=== PATIENT | female | born 1985 | race Caucasian/White ===

== ENCOUNTER 2019-08-29 12:07 | Emergency (ER) | payer OTHER, SELFPAY ==
--- NOTE | ~2019-08-29 | XR_ITS ---
EXAMINATION: XR hand LT min 3V DATE: 08/29/2019 12:57 INDICATION: Left hand pain. Injury. TECHNIQUE: 3 views of left hand were obtained. COMPARISON: None. FINDINGS: Bone alignment is normal. No fracture. There is mild osteoarthritis of first metacarpophala ngeal joint. IMPRESSION: 1. No fracture. Reviewed, dictated and finalized at location A. IMPRESSION: 1. No fracture.
[2019-08-29 12:50] VITALS: BP 123/78; PULSE 90; RESP 20; TEMP 36.7; O2SAT 100
--- NOTE | 2019-08-29 13:13 | ED.GENADULT ---
HPI - General Adult General Chief complaint: Extremity Injury, Upper Stated complaint: left finger injury Time Seen by Provider: 08/29/19 13:14 Source: patient and RN notes reviewed Mode of arrival: ambulatory Limitations: no limitations History of Present Illness HPI narrative: 33-year-old female presents with complaints of LT 4th (ring) finger, (ring in place and Marcella refuses to have removed and unable to remove herself due to swelling, moves freely at this time), pain and swelling and 5th (baby) finger pain for 1 day. No treatment. 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 Intermittent numbness and burning sensation. Denies tingling. No weakness of finger(s). Denies fever or chills. Denies immobility. Exacerbation is movement and palpation of finger. Relieving factor is rest. Dominant hand is RIGHT HAND. The 4th (ring) and 5th (baby) fingers with minor break in skin and bloody drainage. Marcella denies being , LMP 3 days ago. Tetanus not up to date, will update today. The patient reports she have not been diagnosed with COVID-19. The patient reports she is not waiting for the results of a COVID-19 lab test. The patient reports she do not have fever, chills, weakness, fatigue, or myalgia. The patient reports she do not have a new or worsening cough or shortness of breath. Denies chest pain. The patient reports she do not have any rhinorrhea, congestion, sore throat, nausea, vomiting, abdominal pain, and diarrhea. Tolerating po intake well. Denies recent traveling. Denies concerns for COVID-19 or exposures been home since [id number] order except for essential household needs and return home. At this time, patient is not suspected of having COVID-19. Some parts of this dictation were generated by voice recognition software and may contain typographical and/or grammatical inaccuracies. Related Data Home Medications Medication Instructions Recorded Confirmed Vitamin 08/29/19 Allergies Allergy/AdvReac Type Severity Reaction Status Date / Time pertussis vaccine,fluid Allergy Severe Siezure Verified 12/22/18 15:56 Penicillins Allergy Unknown Verified 02/29/16 11:19 Pertussis Vaccines Allergy Unknown Verified 02/29/16 11:18 Review of Systems Review of Systems: Narrative: CONSTITUTIONAL: Denies fever, chills, sweats. EYES: Denies visual changes, redness, discharge. ENT: Denies rhinorrhea, congestion, sore throat, otalgia. CARDIOVASCULAR: Denies chest pain, palpitations, edema. RESPIRATORY: Denies dyspnea, wheezing, cough. GASTROINTESTINAL: Denies abdominal pain, nausea, vomiting, diarrhea. GENITOURINARY: Denies dysuria, hematuria, abnormal discharge. SKIN: Denies rash or itching. Complains of LT 4th (ring) finger swelling, pain, and minor abrasion, and 5th (baby) finger pain and minor abrasion. MUSCULOSKELETAL: Denies acute back pain or myalgia. Complains of LT 4th (ring) finger pain and swelling. NEUROLOGIC: Denies numbness or focal weakness. PSYCHIATRIC: Denies anxiety or depression. All systems reviewed & are unremarkable except as noted in HPI and below PMFSH Past Medical History Medical History (Updated 08/30/19 @ 00:01 by Kristofer Rivera) Anxiety Depression Toe fracture, left BABY TOE Tourettes syndrome Surgical History Surgical History (Updated 08/29/19 @ 13:41 by SADE Hernandez) H/O unilateral oophorectomy Right Family History Family History Other Family history of allergic disorder Family history of blood dyscrasia Family history of kidney disease Social History Social History (Updated 08/29/19 @ 13:42 by SADE Hernandez) Smoking packs per day: 0.5 Smoking cigarettes per day: 10.0 Years smoked: 10 Smoking pack-years: 5.00 Smoking status: Current some day smoker Tobacco type: cigarettes Second hand tobacco smoke exposu
[2019-08-29] MEDS: TETANUS/DIPHTHERIA TOXOIDS ADSORB 0.5 ML VIAL (*BKC) IM (13:49)
== END 2019-08-29 14:10 | disposition home or self-care (01) ==
PROVIDERS: Emergency Provider Nurse Practitioner Family
DX: S63.615A Unspecified sprain of left ring finger, initial encounter (principal); S60.417A Abrasion of left little finger, initial encounter; F95.2 Tourette's disorder; Z23 Encounter for immunization; F17.210 Nicotine dependence, cigarettes, uncomplicated; W23.0XXA Caught, crushed, jammed, or pinched between moving objects, initial encounter
CPT/HCPCS: 29130; 73130; 90471; 90714; 99213; G0463

== ENCOUNTER 2022-07-31 14:35 | Emergency (ER) | payer OTHER, SELFPAY ==
[2022-07-31 14:40] VITALS: BP 133/79; PULSE 91; RESP 16; TEMP 36.2; O2SAT 99
--- NOTE | 2022-07-31 14:57 | ED.GENADULT ---
HPI - General Adult General Chief complaint: Skin/Abscess/Foreign Body Stated complaint: Rash on chest Time Seen by Provider: 07/31/22 14:42 History of Present Illness HPI narrative: Marcella is a previously healthy 36F that presented to the ED with a rash on her chest. It started 2 weeks ago when she was seen in an urgent care and diagnosed with contact dermatitis. She was treated with steroids and Vistaril. It originally improved but the rash and itching returned 2 days later. She is not sure of any new exposures, soaps or detergents. She is however, under a lot of stress as she is recently and is starting a new job. Related Data Home Medications Medication Instructions Recorded Confirmed Vitamin 08/29/19 Allergies Allergy/AdvReac Type Severity Reaction Status Date / Time pertussis vaccine,fluid Allergy Severe Siezure Verified 07/31/22 14:51 Penicillins Allergy Unknown Hives Verified 07/31/22 14:51 Pertussis Vaccines Allergy Unknown Fatigued Verified 07/31/22 14:51 Review of Systems Review of Systems: All systems reviewed & are unremarkable except as noted in HPI and below PMFSH Past Medical History Medical History Anxiety Depression Toe fracture, left BABY TOE Tourettes syndrome Surgical History Surgical History H/O unilateral oophorectomy Right Family History Family History Other Family history of allergic disorder Family history of blood dyscrasia Family history of kidney disease Social History Social History Smoking packs per day: 0.5 Smoking cigarettes per day: 10.0 Years smoked: 10 Smoking pack-years: 5.00 Smoking status: Current some day smoker Tobacco type: cigarettes Second hand tobacco smoke exposure: Yes Alcohol intake: current Substance use: current Substance use type: marijuana Living arrangements: with family Occupation/Education: unemployed Gender identity (if verbalized by the patient): Female Exam Const: General: healthy appearing Nutritional Appearance: well nourished Orientation/consciousness: patient oriented x3 Limitations: no limitations HENMT: Head: normal to inspection Ears: external ears normal Face/Nose/Sinus: Normal external nose present Eyes: Conjunctivae: conjunctivae normal Pupils: Equal, round and reactive pupils present EOM: EOMs intact bilaterally Neck: Neck: normal visual inspection Chest: Chest palpation & inspection: normal inspection of the chest Resp: Effort & Inspection: normal respiratory effort Auscultation: clear to auscultation bilaterally Cardio: Rate: regular rate Rhythm: regular rhythm GI: Inspection: non-distended Skin: Other: maculopapular erythematous rash diffusely over the chest with significant excoriation Neuro: General: patient oriented x3 and moves all extremities Extrem: General: normal to inspection Psych: Mental Status: mental status grossly normal Course Course Emergency Course: given a dose of prednisone Discharge Plan Discharge Clinical Impression: Contact dermatitis Patient Disposition: Home, Self-Care Condition: Stable Instructions: Contact Dermatitis (ED) Additional Instructions: Please make a follow up appointment with your regular doctor or a order booker. Prescriptions: New methylprednisolone [Medrol (Shyam)] 4 mg tablets,dose pack See Rx Instructions .ROUTE .COMPLEX Qty: 21 0RF Rx Instructions: orally per package directions betamethasone dipropionate 0.05 % cream 1 applic topical BID PRN (Reason: rash) Qty: 45 0RF No Action Vitamin Follow-up/Referrals: Becki,MD Bill [Primary Care Provider] -
[2022-07-31] MEDS: predniSONE 20 MG TABLET 60 MG PO (15:32)
== END 2022-07-31 15:35 | disposition home or self-care (01) ==
PROVIDERS: Emergency Provider Family Medicine; PCP Family Medicine
DX: L25.9 Unspecified contact dermatitis, unspecified cause (principal); F17.210 Nicotine dependence, cigarettes, uncomplicated
CPT/HCPCS: 99283; J7512

== ENCOUNTER 2023-10-10 10:20 | Outpatient (CLI) | payer OTHER, SELFPAY ==
--- NOTE | ~2023-10-10 | MMUS_ITS ---
EXAMINATION: MM diagnostic julia BI w roya, US breast BI complete HISTORY: Palpable breast lump TECHNIQUE: Additional 3-D tomosynthesis images of the breasts were performed and synthetic 2-D images were generated. CAD analysis was submitted and interpreted. High resolution bilateral complete breas t ultrasound was performed. COMPARISON: Comparison to multiple prior studies sequentially, with oldest reviewed study dated 10/23. BREAST PARENCHYMAL COMPOSITION: Dense: The breasts are heterogeneously dense, which may obscure small masses FINDINGS: MAMMOGRAPHIC FINDINGS: Stable small mass lower inner quadrant of the right breast compared with prior studies, presumably be nign. No new masses, calcifications or architectural distortion ULTRASOUND: Complete bilateral US of all 4 quadrants of the breasts and retroareolar region was reviewed. There a re small bilateral cysts including a 3 mm cyst in the right breast at 4:00, 6 cm from the nipple and in the left breast at 1:00, 4 cm from the nipple measuring 4 mm. No suspicious sonographic abnormalit ies to suggest malignancy. IMPRESSION: 1. No evidence for malignancy in either breast. 2. Routine yearly screening mammogram and regular clinical breast examination are recommended. BI-RADS Category 2: Benign finding(s). Reviewed, dictated and finalized at location B. IMPRESSION: 1. No evidence for malignancy in either breast. 2. Routine yearly screening mammogram and regular clinical breast examination a re recommended. BI-RADS Category 2: Benign finding(s).
== END 2023-10-10 10:21 | disposition home or self-care (01) ==
PROVIDERS: PCP Family Medicine; Visit Provider Nurse Practitioner Obstetrics & Gynecology
DX: N63.14 Unspecified lump in the right breast, lower inner quadrant (principal); Z80.3 Family history of malignant neoplasm of breast
CPT/HCPCS: 76641; 77062; 77066; G0279

== ENCOUNTER 2024-08-02 16:27 | Emergency (ER) | payer OTHER, SELFPAY ==
--- NOTE | ~2024-08-02 | XR_ITS ---
XR knee RT 3V Ordering provider: Adi Kearney MD History: . right knee pain . Comparison: February 11, 2016 FINDINGS: BONES: No acute fracture or dislocation. JOINT SPACES: Narrowing of the medial compartment. SOFT TISSUES: Normal. IMPRESSION: No acute osseous abnormality right knee. Slight narrowing of the medial compartment which may indicate early osteoarthritic changes. Reviewed, dictated and finalized at location A. IMPRESSION: No acute osseous abnormality right knee. Slight narrowing of the medial compartment which may indicate early osteoarthri tic changes.
--- OUTSIDE RECORDS SUMMARY | 2024-08-02 16:33 | XMS_ITS | Clinical Summary ---
Author Organization [facility] Address [address] [place] [address] Care Team Providers Care Field Training Manager Name Role Phone No, Physician Primary Care Provider [phone] Allergies Active Allergy Reactions Criticality Noted Date Comments Penicillins Unknown 07/29/2020 Pertussis Vaccines Unknown 02/01/2024 Hydrocodone-Acetaminoph en Other (See comments) Low 07/29/2020 Pt reports it makes her sick Medications cetirizine (ZyrTEC) 10 mg tablet Take 1 tablet by mouth as needed 9 Active clotrimazole 1 % cream Apply topically 2 (two) times a day 3 Active Active Problems Problem Noted Date Diagnosed Date At risk for hereditary cancer-predisposing syndr ome 09/12/2023 Overview (09/12/2023): Daughter with POT1 [id number], [id number] Family history of colon cancer 09/12/2023 Breast mass 07/29/2020 Abnormal findings on diagnostic imaging of breas t 07/29/2020 Surgical History Surgery Date Site/Laterality Comments RHEUMATOID ARTHRITIS Medical History Medical History Date Comments Arthritis Depression Family History Medical History Relation Name Comments GI problems Child 1 POT1 Child 1 POT1 [id number] 2del, [id number] Thrombocytopenia Child 1 facial tics Child 2 ADD / ADHD Child 3 Tourette syndrome Child 3 Alcohol abuse Father d. 47 Cirrhosis Maternal Grandfather Colon cancer Maternal Grandmother s/p col ectomy, recurrence d. 74 Breast cancer Maternal Great-Grandmother Colon cancer Maternal Great-Grandmother GI problems Maternal Half-Brother moles Mother COPD Paternal Grandmother d. 70s GI problems Sister 1 No Known Problems Sister 2 Relation Name Status Comments Child 1 Alive Child 2 Alive Child 3 Alive Father Maternal Grandfather Maternal Grandmother Maternal Great-Grandmother m aternal - maternal Maternal Half-Brother Alive Mother Alive Paternal Grandfather Paternal Grandmother Sister 1 Alive Sister 2 Alive Social History Tobacco Use Types Packs/Day Years Used Date Smoking Tobacco: Former Vaping Tobacco Cessation:Counseling Given: Not Answered AUDIT-C Answer Date Recorded Q1: How often do you have a drink containing alc ohol? Monthly or less 07/29/2020 Average Number of Drinks Not on file 021 Frequency of Binge Drinking Not on file 07/2020 Comments Unknown Sex and Gender Information Value Date Recorded Sex Assigned at Not on file Legal Sex Female 8:16 PM KELP GATHERER Gender Identity Not on file Sexual Orientation Not on file Obstetrics History Last Filed Vital Signs Vital Sign Reading Time Taken Comments Blood Pressure 142/84 02/01/2024 9:56 AM KELP GATHERER Pulse 77 02/01/2024 9:56 AM KELP GATHERER Temperature 36.5 C (97.7 F) 02/01/2024 9:56 AM KELP GATHERER Respiratory Rate 18 02/01/2024 9:56 AM KELP GATHERER Oxygen Saturation 100% 02/01/2024 9:56 AM KELP GATHERER Inhaled Oxygen Concentration - - Weight 67.2 kg (148 lb 3.2 oz) 02/01/2024 9:56 A M KELP GATHERER Height 177 cm (5' 9.69 ) 02/01/2024 9:56 AM KELP GATHERER Body Mass Index 21.46 02/01/2024 9:56 AM KELP GATHERER Plan of Treatment Health Maintenance Due Date Last Done Comments Cervical Cancer Screening 1985 Depression Screening 1985 Hepatitis C Screening 1985 Varicella Vaccines (1 of 2 - 13+ 2-dose series) 1998 Regular Well Visit/Exam 18-64 10/08/2003 DTaP/Tdap/Td Vaccine (7 - Td or Tdap) 07/30/2023 07/29/2013, 12/19/2000, 10/11/1990, Additional history exists Influenza Vaccine (#1) 11/26/2023201 4, 02/27/2013, 03/08/2012 Hepatitis B Screening Completed 12/09/1996 , 09/02/1996, 05/24/1996 HPV Vaccines Aged Out No longer eligi ble based on patient's age to complete this topic Pneumococcal vaccine <65 Aged Out No longer eligible based on patient's age to complete this topic Insurance [facility] Care Teams Field Training Manager Relationship Specialty Start Date End Date No, Physician PCP - General 04/21/20
--- OUTSIDE RECORDS SUMMARY | 2024-08-02 16:33 | XMS_ITS | Encounter Summary ---
Author Organization [facility] Address [address] [place] [address] Phone Care Team Providers Care Unit Assembler Name Role Phone No, Physician Primary Care Provider Encounter Details Date Type Department Care Team (Late st Contact Info) Description 06/24/2020 Telephone [facility] Surgery [address] Advanced Medicine 5th [place] [address] [place] [address] Emily Moore Social History Tobacco Use Types Packs/Day Years Used Date Smoking Tobacco: Never Assessed Comments Unknown Sex and Gender Information Value Date Recorded Sex Assigned at Not on file Legal Sex Female 8:16 PM 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
--- OUTSIDE RECORDS SUMMARY | 2024-08-02 16:33 | XMS_ITS | Referral Summary ---
Author Organization [facility] Address [address] [place] [address] Care Team Providers Care Cruller Maker Machine Name Role Phone No, Physician Primary Care Provider Allergies Active Allergy Reactions Criticality Noted Date [...] 09/12/2023 Overview (09/12/2023): Daughter with POT1 [id number], [id number] Family history of colon cancer 09/12/2023 Breast mass 07/29/2020 Abnormal findings on diagnostic imaging of breas t 07/29/2020 Social History Tobacco Use Types Packs/Day Years [...] on file Legal Sex Female 8:16 PM HOME ENERGY AUDITOR Gender Identity Not on file Sexual Orientation Not on file Last Filed Vital Signs Vital Sign Reading Time Taken Comments Blood Pressure 142/84 02/01/2024 9:56 AM HOME ENERGY AUDITOR Pulse 77 02/01/2024 9:56 AM HOME ENERGY AUDITOR Temperature 36.5 C (97.7 F) 02/01/2024 9:56 AM HOME ENERGY AUDITOR Respiratory Rate 18 02/01/2024 9:56 AM HOME ENERGY AUDITOR Oxygen Saturation 100% 02/01/2024 9:56 AM HOME ENERGY AUDITOR Inhaled Oxygen Concentration - - Weight 67.2 kg (148 lb 3.2 oz) 02/01/2024 9:56 A M HOME ENERGY AUDITOR Height 177 cm (5' 9.69 ) 02/01/2024 9:56 AM HOME ENERGY AUDITOR Body Mass Index 21.46 02/01/2024 9:56 AM HOME ENERGY AUDITOR Plan of Treatment Not on file Insurance [facility] Care Teams Cruller Maker Machine Relationship Specialty Start Date End Date No, Physician PCP - General 04/21/20
--- OUTSIDE RECORDS SUMMARY | 2024-08-02 16:33 | XMS_ITS | Clinical Summary ---
Author Organization [facility] Address [address] [place] [address] Care Team Providers Care Housecleaner Floor Name Role Phone Unavailable Primary Care Provider Unavailabl e Source Comments [facility],non-owned Affiliates and Associated Physician Practices is amultiple site organization consisting of ambulatory clinics and hospital sitesin [place], [place]. This disclosure is being madepursuant to the Care Everywhere program and may not contain all information available regarding this patient. Last updated 17.[email or web address] Allergies No known active allergies Medications * Be aware that medications may not be up to date on this document. Always verify current medications with the patient. cetirizine (ZYRTEC) 10 MG tablet Take 1 tablet by mouth as needed 0 12/23/2018 Active ibuprofen (MOTRIN) 200 MG tablet Take 6 tablets by mouth every 6 hours as needed Active Active Problems Problem Noted Date Diagnosed Date Tobacco use disorder 02/04/2019 Breast pain 02/04/2019 Breast cyst, right 02/04/2019 Family History Medical History Relation Name Comments Cancer - Other Maternal Grandmother Relation Name Status Comments Father Maternal Grandmother Mother Alive Neg hx of breas t cancer Sister 1 Alive Sister 2 Alive Social History Tobacco Use Types Packs/Day Years Used Date Smoking Tobacco: Former Cigarettes 0.5 10 0 09/07/2009 - 09/08/2019 Smokeless Tobacco: Never Comments:vap pin 4ml Alcohol Use Standard Drinks/Week Comments Not Currently 0 (1 standard drink = 0.6 oz pur e alcohol) RARELY Comments No Sex and Gender Information Value Date Recorded Sex Assigned at Not on file Legal Sex Female 8:22 AM CDT Gender Identity Not on file Sexual Orientation Not on file Last Filed Vital Signs Vital Sign Reading Time Taken Comments Blood Pressure 105/68 12/09/2019 10:13 AM CDT Pulse 71 12/09/2019 10:13 AM CDT Temperature 36.7 C (98 F) 12/09/2019 10:13 AM CDT Respiratory Rate 16 02/04/2019 12:37 PM ELECTRIC POWERLINE EXAMINER Oxygen Saturation 100% 12/09/2019 10:13 AM CDT Inhaled Oxygen Concentration - - Weight 63 kg (139 lb) 12/09/2019 10:13 AM CDT Height 177.8 cm (5' 10 ) 12/09/2019 10:13 AM CDT Body Mass Index 19.94 12/09/2019 10:13 AM CDT Plan of Treatment Health Maintenance Due Date Last Done Comments HIV SCREENING 2000 HEPATITIS C SCREENING 10/03/2003 DTAP/TDAP/TD VACCINES (1 - Tdap) 2004 HEPATITIS B VACCINE (1 of 3 - 19+ 3-dose series) 2004 COVID-19 VACCINE (1 - 2023-2 5 season) 2023 DEPRESSION SCREENING 03/27/2024 INFLUENZA VACCINE (Season Ended) 2024 ZOSTER VACCINE (1 of 2) 10/08/2035 HIB VACCINE Aged Out No longer eligi ble based on patient's age to complete this topic HPV VACCINE Aged Out No longer eligi ble based on patient's age to complete this topic MENINGOCOCCAL (Group B) VACC INE SHARED DECISION-MAKING Aged Out No longer eligibl e based on patient's age to complete this topic MENINGOCOCCAL GROUPS A/C/Y/W VACCINE Aged Out No longer eligible b ased on patient's age to complete this topic PNEUMOCOCCAL VACCINE Aged Out No long er eligible based on patient's age to complete this topic Insurance [facility]
--- OUTSIDE RECORDS SUMMARY | 2024-08-02 16:33 | XMS_ITS | Encounter Summary ---
Author Organization [facility] Address [address] [place] [address] Care Team Providers Care Vat Operator Name Role Phone Mildred Dimas MD Primary Care Provider Reason for Visit * Diagnostic Imaging (Routine) - Pending Review Specialty Diagnoses / Procedures Referred By Contac t Referred To Contact Procedures Breast Imaging US Outside Reference Transcribed Order, Provider Referral ID Status Reason Start Date Expiration Date V isits Requested Visits Authorized [id number] Pending Review 01/11/2024 02/09/2025 1 1 Encounter Details Date Type Department Care Team (Late st Contact Info) Description 07/13/2018 Hospital Encounter [facility] [address] [place] [address] Social History Tobacco Use Types Packs/Day Years Used Date Smoking Tobacco: Former Vaping AUDIT-C Answer Date Recorded Q1: How often do you have a drink containing alc ohol? Monthly or less 07/29/2020 Average Number of Drinks Not on file 021 Frequency of Binge Drinking Not on file 07/2020 Comments Unknown Sex and Gender Information Value Date Recorded Sex Assigned at Not on file Legal Sex Female 8:16 PM SENIOR CONTROLLER Gender Identity Not on file Sexual Orientation Not on file documented as of this encounter Functional Status documented as of this encounter Plan of Treatment Not on file documented as of this encounter Procedures Procedure Name Priority Date/Time Associated Diagnosis Comments BREAST IMAGING US OUTSIDE REFERENCE Routine 07/13/2018 12:00 AM CDT documented in this encounter Results * Breast Imaging US Outside Reference (07/13/2018 12:00 AM CDT) Impressions [facility] - 01/11/2024 3:24 PM CDT These images are for Reference purposes only and have not been reviewed by [facility] Radiology. There will be no report generated by a [facility] Radiologist. Narrative [facility] - 01/11/2024 3:24 PM CDT EXAMINATION: Images For Reference Purposes Only us Provider Transcribed Order IMG MAMMO PROCEDURES Final Result [facility] documented in this encounter Visit Diagnoses Not on filedocumented in this encounter Care Teams Vat Operator Relationship Specialty Start Date End Date Mildred Dimas MD [address] [place] [address] PCP - General Family Medicine 10/25/17 04/20/20 documented as of this encounter
--- OUTSIDE RECORDS SUMMARY | 2024-08-02 16:33 | XMS_ITS | Encounter Summary ---
Author Organization [facility] Healthcare Address [address] [place] [address] Care Team Providers Care Waiter/Waitress Economy Class Name Role Phone Unavailable Primary Care Provider Unavailabl e Reason for Visit * Diagnostic Imaging (Routine) - Pending Review Specialty Diagnoses / Procedures Referred By Contac t Referred To Contact Procedures Breast Imaging US Outside Reference Transcribed Order, Provider Referral ID Status Reason Start Date Expiration Date V isits Requested Visits Authorized [id number] Pending Review 01/11/2024 02/09/2025 1 1 Encounter Details Date Type Department Care Team (Late st Contact Info) Description 10/23/2017 Hospital Encounter [facility] [address] [place] [id number] Social History Tobacco Use Types Packs/Day Years [...] on file Legal Sex Female 8:16 PM COMMERCIAL GREEN RETROFIT ARCHITECT Gender Identity Not on file Sexual Orientation Not on file documented as of this encounter Functional Status documented as of this encounter Plan of Treatment Not on file documented as of this encounter Procedures Procedure Name Priority Date/Time Associated Diagnosis Comments BREAST IMAGING US OUTSIDE REFERENCE Routine 10/23/2017 12:00 AM CDT documented in this encounter Results * Breast Imaging US Outside Reference (10/23/2017 12:00 AM CDT) Impressions [facility] - 01/11/2024 3:24 PM CDT These images are for Reference purposes only and have not been reviewed by [facility]. There will be no report generated by a [facility] Radiologist. Narrative [facility] - 01/11/2024 3:24 PM CDT EXAMINATION: Images For Reference Purposes Only us Provider Transcribed Order IMG MAMMO PROCEDURES Final Result [facility] documented in this encounter Visit Diagnoses Not on filedocumented in this encounter
--- OUTSIDE RECORDS SUMMARY | 2024-08-02 16:33 | XMS_ITS | Data Portability ---
Author Organization [facility] [place] Address [address] [place] [address] Care Team Providers Care Pondman Name Role Phone [facility] Primary Care Pro vider Assessment Encounter Date Assessment Date Assessment LastModified by Organization Details LastModified Time 12/06/2019 12/06/2019 Annual gynecological exam performed. Patient will come back in a year unless there are new symptoms. [email or web address] Not available 12/06/2019 10:16:09 09/20/2023 09/20/2023 Annual gynecological exam performed. Patient will come back in a year unless there are new symptoms. [email or web address] Not available 09/20/2023 14:23:17 Plan of Treatment Reminders Order Date Submit Date Provider Last Modified By Organization Details Last Modified Time Details Appointments None recorded. Lab bile acids, total, serum [address] [facility] (Lab), [address], [place], [address], 4 10:37:51 CMP, serum or plasma [address] [facility] (Lab), [address], [place], [address], 4 10:37:50 lipid panel, blood [address] [facility] (Lab), [address] [place], [address], 4 10:37:50 CBC w/ auto diff [address] [facility] (Lab), [address], [place], [address], 4 10:37:49 HbA1c (hemoglobi n A1c), blood [address] [facility] (Lab), [address] [facility], [place], [address], 4 10:37:49 TSH, serum or plasma [address] [facility] (Lab), [address], [place], [address], 4 10:37:51 Referral primary care provider referral 2023 024 [place] [address] Latesha Winston [employer], [address] [facility] , [address], [place], [address], 4 10:44:35 Procedures None recorded. Surgeries None recorded. Imaging MAMMO, diagnostic , bilateral 2023 024 [facility], [address], [address], [place], [address], 4 12:06:56 US, breast, unilateral , w/ axilla [address] [facility], [address], [address], [place], [address], 4 11:29:00 Medication Orders nystatin-t riamcinolo ne 100,000 unit/g-0.1 % topical cream 2019 020 [email or web address] 1 [id number], [address] [facility], [place], [place], [id number], 4 09:22:59 Patient TargetsNo targets recorded. Patient Instructions Encounter Date Encounter Id Patient Instructions Last Modified By Organization Details Last Modified Time 12/06/2019 [id number] Suggest Calcium with Vitamin D if not eating in diet. Patient advised to get annual flu shot. Recommend yearly physicals and preform monthly breast exams. Genetic testing is available for patients with family history of cancer. Engage in safe sexual practices, use condoms. Encouraged to have daily exercise. Avoid tobacco and illicit drugs, moderation of alcohol. If BMI greater than 25 dietary consult advised. If you have any questions please call or email. refer to [facility] for a more homeopathic approach to her pruritus will call out topical for now. Not available 12/06/2019 10:42:47 Reason for Referral Primary Care Provider Referr al for Adult health examination Referring Physician: Karin Garcia, BUDGET EXAMINER, Encounter Date: 09/07/2023 Results Created Date Observation Date Name Description Value Unit Range Abnormal Flag Note LastModifiedBy Organization Detail LastModifiedTime 12/06/19 20 12/09/2019 pap, LB Pap test thin prep Negati ve for Intrae pithel ial Lesion or Malign faisal normal ACCES MARCIE #: [id number] Sourc e: Cervi juana/E ndoce rvica l LMP: 2019 Date Taken : 12/05 Speci men Type: ThinP rep Vial Date Repor red: 2019 Clini juana Data: Cytot ech: Kaitl in MEliza Wallace , CT( CP) Date Repor red: 2019 Speci men Adequ acy: Satis facto ry for evalu ation Endoc ervic al/tr ansfo rmati on zone compo nent prese nt Gener al Categ oriza tion: NEGAT CORBIN FOR INTRA EPITH ELIAL LESIO N OR MALIG AUDREY This speci men has been whit zed by the ThinP rep Imagi ng Syste m, an inter activ e compu ter syste m which miranda ts the lab in the scree nicole of ThinP rep Pap Test slide sEliza Pizaror wing imagi ng, the slide was revie wed by a Cytot echno logis t and/o r Patho logis t. D N A A S S A Y S R E P O R T TEST NAME RESUL TS ----- ---- ----- -- HPV High Risk Scree n (TMA) ThinP rep Vial The human papil lomav irus (HPV) High Risk Scree n is an FDA-a pprov ed in-vi tro ampli fied nucle ic acid test for the quali tativ e detec tion of E6/E7 viral mRNA. Resul ts shoul d be corre lated with patie nt prese ntati on, histo ry, cervi juana cytol ogy and other clini juana and labor atory findi ngs. See https ://Wercker/s ites/ defau lt/fi les/2 018-0 AW- [id number] _002_ 01.pd f for [facility] er infor matio n. Test perfo rmed by [facility], [address], [place] [address] , Mendoza Baptiste ra, , Labor atory Direc tor. HPV High Risk *HPV NOT DETEC RED (TYPE S 16, 18, 31, 33, 35, 39, 45, 51, 52, 56, 58, 59, 66, 68) *HPV: The human papil lomav irus (HPV) High Risk Scree n is an FDA-a pprov ed in-vi tro ampli fied nucle ic acid test for the quali tativ e detec tion of E6/E7 viral mRNA. Resul ts shoul d be corre lated with patie nt prese ntati on, histo ry, cervi juana cytol ogy and other clini juana and labor atory findi ngs. See https ://Wercker/s ites/ defau lt/fi les 018-0 AW- [id number] _002_ 01.pd f for furth er infor matio n. Test perfo rmed by [facility], [address], [place] [address] , Mendoza Baptiste ra, , Labor atory Direc tor. End of Repor t Techn ical servi danica provi ded by [facility] iated Patho logis [facility], [employer], [facility]/a [facility], [address] [place] [address] Ned Dela Cruz MD, [facility] tor. Case revdaja wed and diagn osis rende red at [facility] iated Patho logis [employer], [employer], d/b/a [facility], [address] [place] [address] Ned Dela Cruz MD, Labor atory [facility] tor. CONFI DENTI AL Not Available [facility] ([facility]) [address], [place], [address], 12/09/2019 13:44:20 12/06/19 20 12/07/2019 HPV DNA, high- risk HPV high risk NOT DETECT ED normal Not Available [facility] ([facility]) [address], [place], [address], 12/09/2019 13:44:21 09/07/19 24 09/07/2023 CBC W/DIF F WBC 6.5 10'3/ uL 3.5-10 .5 Not Available [facility] (Lab) [address], [place], [address], 09/08/2023 10:37:48 09/07/19 24 09/07/2023 CBC W/DIF F RBC 4.62 10'6/ uL (based on docume nted legal sex) 3.80-5 .20 Not Available [facility] (Lab) [address], [place], [address], 09/08/2023 10:37:48 09/07/19 24 09/07/2023 CBC W/DIF F HGB 14.2 g/dL (based on docume nted legal sex) 11.6-1 5.4 Not Available [facility] (Lab) [address], [place], [address], 09/08/2023 10:37:48 09/07/19 24 09/07/2023 CBC W/DIF F HCT 43.6 % (based on docume nted legal sex) 34.0-4 5.0 Not Available [facility] (Lab) [address], [place], [address], 09/08/2023 10:37:48 09/07/19 24 09/07/2023 CBC W/DIF F MCV 94.4 fL 80.0-9 9.0 Not Available [facility] (Lab) [address], [place], [address], 09/08/2023 10:37:48 09/07/19 24 09/07/2023 CBC W/DIF F MCH 30.7 pg 27.0-3 4.0 Not Available [facility] (Lab) [address], [place], [address], 09/08/2023 10:37:48 09/07/19 24 09/07/2023 CBC W/DIF F MCHC 32.6 g/dL 32.0-3 5.5 Not Available [facility] (Lab) [address], [place], [address], 09/08/2023 10:37:48 09/07/19 24 09/07/2023 CBC W/DIF F RDW 13.1 % 11.0-1 5.0 Not Available [facility] (Lab) [address], [place], [address], 09/08/2023 10:37:48 09/07/19 24 09/07/2023 CBC W/DIF F plt 212 10'3/ uL 150-40 0 Not Available [facility] (Lab) [address], [place], [address], 09/08/2023 10:37:48 09/07/19 24 09/07/2023 CBC W/DIF F MPV 10.9 fL 8.8-12 .1 Not Available [facility] (Lab) [address], [place], [address], 09/08/2023 10:37:48 09/07/19 24 09/07/2023 CBC W/DIF F NRBC's 0.0 % 0.0 Not Available [facility] (Lab) [address] [facility], [place], [address], 09/08/2023 10:37:48 09/07/19 24 09/07/2023 CBC W/DIF F absolute NRBCs 0.0 10'3/ uL no refere nce range establ ished Not Available [facility] (Lab) [address] [facility], [place], [address], 09/08/2023 10:37:48 09/07/19 24 09/07/2023 CBC W/DIF F neutrophils 61.3 % 34.0-7 3.0 Not Available [facility] (Lab) [address] [facility], [place], [address], 09/08/2023 10:37:48 09/07/19 24 09/07/2023 CBC W/DIF F lymphocytes 21.5 % 15.0-5 0.0 Not Available [facility] (Lab) [address] [facility], [place], [address], 09/08/2023 10:37:48 09/07/19 24 09/07/2023 CBC W/DIF F monocytes 6.9 % 1.0-15 .0 Not Available [facility] (Lab) [address] [facility], [place], [address], 09/08/2023 10:37:48 09/07/19 24 09/07/2023 CBC W/DIF F eosinophils 9.1 % 0.0-8. 0 high Not Available [facility] (Lab) [address] [facility], [place], [address], 09/08/2023 10:37:48 09/07/19 24 09/07/2023 CBC W/DIF F basophils 0.9 % 0.0-2. 0 Not Available [facility] (Lab) [address] [facility], [place], [address], 09/08/2023 10:37:48 09/07/19 24 09/07/2023 CBC W/DIF F immature granulocytes 0.3 % no define d refere nce range Not Available [facility] (Lab) [address] [facility], [place], [address], 09/08/2023 10:37:48 09/07/19 24 09/07/2023 CBC W/DIF F absolute neutrophils 4.0 10'3/ uL 1.5-8. 0 Not Available [facility] (Lab) [address] [facility], [place], [address], 09/08/2023 10:37:48 09/07/19 24 09/07/2023 CBC W/DIF F absolute lymphocytes 1.4 10'3/ uL 1.0-4. 0 Not Available [facility] (Lab) [address] [facility], [place], [address], 09/08/2023 10:37:48 09/07/19 24 09/07/2023 CBC W/DIF F absolute monocytes 0.5 10'3/ uL 0.2-1. 0 Not Available [facility] (Lab) [address] [facility], [place], [address], 09/08/2023 10:37:48 09/07/19 24 09/07/2023 CBC W/DIF F absolute eosinophils 0.6 10'3/ uL 0.0-0. 6 Not Available [facility] (Lab) [address] [facility], [place], [address], 09/08/2023 10:37:48 09/07/19 24 09/07/2023 CBC W/DIF F absolute basophils 0.1 10'3/ uL 0.0-0. 3 Not Available [facility] (Lab) [address] [facility], [place], [address], 09/08/2023 10:37:48 09/07/19 24 09/07/2023 CBC W/DIF F absolute immature granulocytes 0.0 10'3/ uL 0.00-0 .10 2023 4:16 AM: P indic ates parti al resul ts on a panel have been relea sed. Addit ional resul ts will follo w. 2023 4:16 AM: This resul t has been final verif ied. No addit ional or cramer ed resul ts are expec red. Not Available [facility] (Lab) [address] [facility], [place], [address], 09/08/2023 10:37:48 09/07/19 24 09/07/2023 HEMOG LOBIN A1C hemoglobin A1C 5.0 % 0-5.6 The Ameri can Diabe juan Assoc iatio n recom mends that a prima ry goal of thera py neeraj d be a HBA1C of < 7% and that physi cians shoul d reeva luate the treat ment regim en in patie nts with HBA1C value s consi stent ly > 8%. <5.7% Rocio l 5.7 - 6.4% Incre ased risk for diabe juan >=6.5 % Diagn ostic of diabe juan <7.0% Goal of thera py >8.0% Actio n sugge sted Not Available [facility] (Lab) [address] [facility], [place], [address], 09/08/2023 10:37:49 09/07/19 24 09/07/2023 LIPID PANEL ,AMA (LDL- CALC) total cholesterol 178 mg/dL 0-199 Not Available [facility] (Lab) [address] [facility], [place], [address], 09/08/2023 10:37:50 09/07/19 24 09/07/2023 LIPID PANEL ,AMA (LDL- CALC) triglyceride s 109 mg/dL 0-150 NCEP Refer ence Value s for Trigl yceri frank: Rocio l: <150 mg/dL Borde rline High: 150 - 199 mg/dL High: 200 - 499 mg/dL Very High: >/= 500 mg/dL Not Available [facility] (Lab) [address] [facility], [place], [address], 09/08/2023 10:37:50 09/07/19 24 09/07/2023 LIPID PANEL ,AMA (LDL- CALC) HDL cholesterol 48 mg/dL >40 Not Available [facility] (Lab) [address] [facility], [place], [address], 09/08/2023 10:37:50 09/07/19 24 09/07/2023 LIPID PANEL ,AMA (LDL- CALC) LDL cholesterol 108 mg/dL 0-99 high Cutof f value s recom cris d by the Natio nal María stero l Educa tion Progr am: LYNSEY ABLE: María stero l <200 mg/dL LDL <100 mg/dL BORDE RLINE : María stero l 200-2 39 mg/dL LDL 101-1 59 mg/dL HIGHE R RISK: María stero l >240 mg/dL LDL >160 mg/dL , HDL <40 mg/dL Not Available [facility] (Lab) [address] [facility], [place], [address], 09/08/2023 10:37:50 09/07/19 24 09/07/2023 LIPID PANEL ,AMA (LDL- CALC) non-HDL cholesterol 130 mg/dL no refere nce range A reaso nable goal for non-H DL maría stero l is one that is 30 mg/dL highe r than the LDL maría stero l goal. Not Available [facility] (Lab) [address] [facility], [place], [address], 09/08/2023 10:37:50 09/07/19 24 09/07/2023 LIPID PANEL ,AMA (LDL- CALC) chol/HDL ratio 3.7 . 0.0-5. 0 On July 19, 2022, [facility] labor atori david cramer ed the equat ion for calcu latin g estim ated low-d ensit y lipop rotei n-cho leste rol (LDL- C) from the Fried jake equat ion to the Abril n/Mary singh equat ion. This new equat ion is only valid for lipid panel s with trigl yceri frank < 400 mg/dL . Studi es have demon marian ed that this new equat ion will impro ve the accur acy of LDL-C , espec ially in [place] when LDL-C familia ntrat ions are relat ively low (< 100 mg/dL ), trigl yceri frank are eleva red, or patie nt is non-f astin g. Refer ences : - Abril daniel, [address], Danny Murphy , Salena Wilson. Christa hardwick, Claudio Horner, Claudio brown, Tab Orantes. [facility] , and Carmelo Manzano . 2013. Comp ariso n of a Novel Metho d vs the Fried jake Equat ion for Estim ating Low-D ensit y Lipop rotei n María stero l Level s from the Stand tico Lipid Profi le. AZIZA: The Journ al of the Ameri can Medic al Assoc iatio n 310 19): 2060- . - Asha mandujano V, Lorna J, China ar A, Ac M, Nargis e R, Mateo mandujano E, Amrit [facility] RS, Jose Juan SR, Abril daniel SS. Fast ing Versu s Nonfa sting and Low-D ensit y Lipop rotei n María stero l Accur acy. Circu latio n. 2017Mar 28;137 (1):1 0-19. Not Available [facility] (Lab) [address] [facility], [place], [address], 09/08/2023 10:37:50 09/07/19 24 09/07/2023 CMP(C OMPRE HENSI VE METAB OLIC PANEL ) sodium 142 mmol/ L 133-14 6 Not Available [facility] (Lab) [address] [facility], [place], [address], 09/08/2023 10:37:50 09/07/19 24 09/07/2023 CMP(C OMPRE HENSI VE METAB OLIC PANEL ) potassium 3.7 mmol/ L 3.5-5. 1 Not Available [facility] (Lab) [address] [facility], [place], [address], 09/08/2023 10:37:50 09/07/19 24 09/07/2023 CMP(C OMPRE HENSI VE METAB OLIC PANEL ) chloride 103 mmol/ L 98-107 Not Available [facility] (Lab) [address] [facility], [place], [address], 09/08/2023 10:37:50 09/07/19 24 09/07/2023 CMP(C OMPRE HENSI VE METAB OLIC PANEL ) carbon dioxide 27 mmol/ L 21-31 Not Available [facility] (Lab) [address] [facility], [place], [address], 09/08/2023 10:37:50 09/07/19 24 09/07/2023 CMP(C OMPRE HENSI VE METAB OLIC PANEL ) anion gap 12 mmol/ L 4-13 Not Available [facility] (Lab) [address] [facility], [place], [address], 09/08/2023 10:37:50 09/07/19 24 09/07/2023 CMP(C OMPRE HENSI VE METAB OLIC PANEL ) blood urea nitrogen 18 mg/dL 7-25 Not Available [facility] (Lab) [address] [facility], [place], [address], 09/08/2023 10:37:50 09/07/19 24 09/07/2023 CMP(C OMPRE HENSI VE METAB OLIC PANEL ) creatinine 0.86 mg/dL 0.60-1 .30 Not Available [facility] (Lab) [address] [facility], [place], [address], 09/08/2023 10:37:50 09/07/19 24 09/07/2023 CMP(C OMPRE HENSI VE METAB OLIC PANEL ) egfrcr (CKD-epi 2020) 89 mL/mi n/1.7 3_m2 >=60 Not Available [facility] (Lab) [address] [facility], [place], [address], 09/08/2023 10:37:50 09/07/19 24 09/07/2023 CMP(C OMPRE HENSI VE METAB OLIC PANEL ) calcium 9.4 mg/dL 8.3-10 .5 Not Available [facility] (Lab) [address] [facility], [place], [address], 09/08/2023 10:37:50 09/07/19 24 09/07/2023 CMP(C OMPRE HENSI VE METAB OLIC PANEL ) glucose 81 mg/dL 70-100 Not Available [facility] (Lab) [address] [facility], [place], [address], 09/08/2023 10:37:50 09/07/19 24 09/07/2023 CMP(C OMPRE HENSI VE METAB OLIC PANEL ) protein, total 7.6 g/dL 6.4-8. 3 Not Available [facility] (Lab) [address] [facility], [place], [address], 09/08/2023 10:37:50 09/07/19 24 09/07/2023 CMP(C OMPRE HENSI VE METAB OLIC PANEL ) albumin 4.5 g/dL 3.5-5. 0 Not Available [facility] (Lab) [address] [place], [address], 09/08/2023 10:37:50 09/07/19 24 09/07/2023 CMP(C OMPRE HENSI VE METAB OLIC PANEL ) ALT 12 units /L 9-43 Not Available [facility] (Lab) [address] [place], [address], 09/08/2023 10:37:50 09/07/19 24 09/07/2023 CMP(C OMPRE HENSI VE METAB OLIC PANEL ) alkaline phosphatase 52 units /L 34-104 Not Available [facility] (Lab) [address] [facility], [place], [address], 09/08/2023 10:37:50 09/07/19 24 09/07/2023 CMP(C OMPRE HENSI VE METAB OLIC PANEL ) AST 14 units /L 13-39 Not Available [facility] (Lab) [address] [facility], [place], [address], 09/08/2023 10:37:50 09/07/19 24 09/07/2023 CMP(C OMPRE HENSI VE METAB OLIC PANEL ) bilirubin, total 0.5 mg/dL 0.2-1. 2 Not Available [facility] (Lab) [address] [facility], [place], [address], 09/08/2023 10:37:50 09/07/19 24 09/07/2023 TSH, REFLE X FREE T4 TSH 1.06 uIU/m L 0.30-5 .33 Not Available [facility] (Lab) [address] [facility], [place], [address], 09/08/2023 10:37:51 09/07/19 24 09/07/2023 BILE ACIDS , TOTAL bile acids, total 4 umol/ L 0-10 Not Available [facility] (Lab) [address] [facility], [place], [address], 09/08/2023 10:37:51 09/20/19 24 09/20/2023 IMAGE GUIDE D PAP AND HPV REGAR DLESS image guided Pap, HPV regardless of Pap result SEE RESULT S BELOW CASE REPOR T: Cytol ogy Gynec ologi juana Repor t Case: [id number] Autho jennifer g Provi macario: Zeny Rosas, BHUPINDER Colle cted: 09/19 1547 Order ing Locat ion: [place] [facility] Recei florence: 09/21 First Scree n: Shermi an, Amena Speci men: Scree nicole Pap - Image d, Cervi x STATE MENT OF ADEQU ACY: Satis facto ry for evalu ation Trans forma tion zone compo nent prese nt ----- ----- ----- ----- ----- ----- ----- ----- ----- ----- ----- ----- ----- ----- ----- ----- ----- ---- FINAL DIAGN OSIS: Negat corbin for Intra epith elial Tiny daniel or Abel betancourt (NIL) . Elect maryellen claudio by Amena Fuentes on 024 at 2:18 PM ----- ----- ----- ----- ----- ----- ----- ----- ----- ----- ----- ----- ----- ----- ----- ----- ----- ---- HPV RESUL TS: HPV mRNA E6/E7 : No HPV mRNA Detec red NOTE: This high risk HPV mRNA assay detec ts fourt een high- risk HPV types (16, 18, 31, 33, 35, 39, 45, 51, 52, 56, 58, 59, 66, 68) witho ut diffe renti ation . COMME NT: Slide scree patricia reg llramona due to rejec tion by the Thinp rep Imagi ng Syste m. CLINI JUANA INFOR MATIO N: Menst rual Statu s: LMP (if appli cable ): Clini juana Histo ry/Pr eviou s Pap: Type of Neopl antwan (if appli cable ): Signi fican t Clini juana Findi ngs: Other Histo ry: Hormo avelina (if appli cable ): PAP EDUCA TYESHA L NOTE: The Pap Test is a scree nicole test with an inher ent false negat corbin rate. Liqui d-bas ed sampl ing may decre ase, but will not elimi jeny, false negat corbin resul ts. A negat corbin resul t does not precl ude the prese nce and/o r devel opmen t of disea se, since the prese nce of abnor mal cells in the sampl e depen ds on the locat ion of the lesio n and sampl ing techn ique. Joaquin nued regul ar scree nicole is the best metho d of cance r preve ntion . If repor red cytol ogic findi ng do not corre late with physi juana and/o r histo rical findi ngs, furth er inves tigat ion is recom cris d, as clini cinthia delacruz nted. Not Available [facility] (Lab) [address], [place], [address], 09/26/2023 15:22:05 10/31/19 24 10/10/2023 MAMMO , diagn ostic , bilat eral No observ ation record ed. [facility] (Mammography) [address], [place], [address], 11/01/2023 10:32:21 Result Notes None recorded. Procedures Surgical History Date Name Laterality Status Provider Name and Address Organization Details Recorded Time 12/06/19 20 Date of Last Pap Smear completed [facility] 12/06/2019 10:18:44 07/24/19 19 Date of [facility]12[facility]23 16:53:28 09/25/19 15 laparoscopic salpingo-oophore ctomy completed [facility] 09/12/2023 16:56:46 Imaging Results Imaging Date Name Status LastModified by Organiz ation Details LastModified Time 10/10/2023 MAMMO, diagnostic, bilateral completed [facility] (Mammography) [address], [place], [address], 11/01/2023 10:32:21 Procedure Notes None recorded. Medical Equipment None Reported. Allergies Allergen ID Allergen Name Allergen Category Reaction Reaction Severity Criticality Documentation Date Start Date Code Code System Note Provider Name and Address Organization Details Recorded Time 1991 pertussis vaccine medicatio n Not available Not available Not available 12/06/2019 8080 RxNorm Jada Sena [facility], [place] - [facility] 0 10:18:16 Medications Name Sig Start Date Stop Date Status Note LastModified by Organization Details LastModified Time Augmentin 875 mg-125 mg tablet take 1 tablet by oral route every 12 hours 09/06 completed Prescrib ed Elsewher e: No Locat ion: [facility] By: dmitri claros DateTime : 02/16/20 16 01:15:00 PM Not Available Not Available Not Available Colace 100 mg capsule take 1 capsule by oral route twice daily 01/12 completed Prescrib ed Elsewher e: No Locat ion: [facility] By: lucy Bosste r DateTime : 10/18/19 15 09:18:23 AM Not Available Not Available Not Available prednison e 10 mg tablet 09/06 completed Not Available Not Available Not Available triamcino lone acetonide 0.5 % topical cream 12/05 completed Not Available Not Available Not Available cetirizin e 10 mg tablet 12/05 completed Not Available Not Available Not Available permethri n 5 % topical cream 09/06 completed Not Available Not Available Not Available Diflucan 150 mg tablet take 1 tablet by oral route once and repeat in 72 hours 01/12 completed Prescrib ed Elsewher e: No Locat ion: [facility] By: lucy Encounte r DateTime : 11/07/19 15 12:00:00 PM Not Available Not Available Not Available triamcino lone acetonide 0.1 % topical cream 09/06 completed Not Available Not Available Not Available Macrobid 100 mg capsule take 1 capsule by oral route every 12 hours with food 01/12 completed Prescrib ed Elsewher e: No Locat ion: [facility] By: lucy Encounte r DateTime : 11/07/19 15 12:00:00 PM Not Available Not Available Not Available nystatin- triamcino lone 100,000 unit/g-0. 1 % topical cream APPLY TO THE AFFECTED AREA TOPICALL Y TWICE DAILY IN THE MORNING AND EVENING 09/06 completed Not Available Not Available Not Available hydroxyzi ne HCl 25 mg tablet 09/06 completed Not Available Not Available Not Available ibuprofen 600 mg tablet TAKE 1 TABLET BY MOUTH EVERY 6 HOURS WITH FOOD NEEDED 09/06 completed Not Available Not Available Not Available levocetir izine 5 mg tablet TAKE 1 TABLET BY MOUTH THREE TIMES DAILY 09/06 completed Not Available Not Available Not Available Vitals Date Recorded Body height Body mass index (BMI) Body weight Systolic blood pressure Diastolic blood pressure Provider Name and Address Organization Details Last Updated DateTime 12/06/2019 177.17 cm 19.7 kg/m2 49452.56 g 111 mm[Hg] 70 mm[Hg] Jada Sena [facility] 0 10:18:00 Date Recorded Body height Body mass index (BMI) Body weight Systolic blood pressure Diastolic blood pressure Provider Name and Address Organization Details Last Updated DateTime 09/07/2023 177.17 cm 21.8 kg/m2 05118.45 g 128 mm[Hg] 74 mm[Hg] Jada Sena [facility] 4 09:22:33 Date Recorded Body height Body mass index (BMI) Body weight Systolic blood pressure Diastolic blood pressure Provider Name and Address Organization Details Last Updated DateTime 09/20/2023 177.17 cm 21.5 kg/m2 53342.26 g 130 mm[Hg] 87 mm[Hg] Ameena Roper [facility] 4 14:25:07 Date Recorded Body height Body mass index (BMI) Body weight Systolic blood pressure Diastolic blood pressure Provider Name and Address Organization Details Last Updated DateTime 04/29/2020 177.17 cm 21.7 kg/m2 25355.86 g 127 mm[Hg] 75 mm[Hg] Shruti Rios [facility] 1 15:39:30 Social History Question Answer Notes LastModified by Organizat ion Details LastModified Time Tobacco Smoking Status Former Smoker Jada Sena [facility], [facility] 12/09/2019 11:23:43 What Is Your Level Of Alcohol Consumption? None [email or web address] Information not available 12/09/2019 Are You Blind Or Do You Have Difficulty Seeing? No [email or web address] Information not available 09/07/2023 What Is Your Level Of Caffeine Consumption? Occasional [email or web address] Information not available 09/07/2023 In The 14 Days Before Symptom Onset, Have You Had Close Contact With A Laboratory-confir med COVID-19 While That Case Was Ill? No [email or web address] Information not available 09/07/2023 In The 14 Days Before Symptom Onset, Have You Had Close Contact With A Person Who Is Under Investigation For COVID-19 While That Person Was Ill? No [email or web address] Information not available 09/07/2023 Have You Been To An Area Known To Be High Risk For COVID-19? No [email or web address] Information not available 09/07/2023 Are You Deaf Or Do You Have Serious Difficulty Hearing? No [email or web address] Information not available 09/07/2023 What Type Of Diet Are You Following? REGULAR [email or web address] Information not available 09/07/2023 Do You Or Have You Ever Used E-cigarettes Or Vape? Current User Of Electronic Cigarettes [email or web address] Information not available 12/09/2019 What Was The Date Of Your Most Recent Tobacco Screening? 09/07/2023 Information not available 09/07/2023 Do You Use Your Seat Belt Or Car Seat Routinely? Yes [email or web address] Information not available 09/07/2023 Do You Have Smoke And Carbon Monoxide Detectors In Your Home? Yes [email or web address] Information not available 09/07/2023 Do You Or Have You Ever Used Smokeless Tobacco? Never Used Smokeless Tobacco [email or web address] Information not available 12/09/2019 How Much Tobacco Do You Smoke? No [email or web address] Information not available 12/09/2019 Do You Feel Stressed (tense, Restless, Nervous, Or Anxious, Or Unable To Sleep At Night)? [id number] [email or web address] Information not available 09/07/2023 Do You Use Sunscreen Routinely? Yes [email or web address] Information not available 09/07/2023 Sex: Unknown Functional Status Question Answer Note LastModified by Organizat ion Details LastModified Time Do you have difficulty walking or climbing stairs? No [email or web address] Information not available 09/07/2023 Are you able to walk? YESWOREST [email or web address] Information not available 09/07/2023 Are you able to care for yourself? Yes [email or web address] Information not available 09/07/2023 Do you have difficulty dressing or bathing? No [email or web address] Information not available 09/07/2023 What is your exercise level? Occasional [email or web address] Information not available 12/09/2019 Mental Status None recorded. Family History Relationship Description Onset Age of this Age Resolved Age Notes LastModified by Organization Details LastModified Time Maternal Grandmother Malignant tumor of breast [email or web address] Not available 12/08 11:22:29 Maternal Grandmother Malignant tumor of colon [email or web address] Not available 12/08 11:22:36 Father Drug abuse [email or web address] Not avail able 12/09/2019 11:23:14 Father History of alcoholism [email or web address] Not available 11/25 11:23:26 Medical History Condition Response Allergies (Food, seasonal, environmental ) N Other Y Breast Cancer N Drug/Latex Allergies/Reactions N Blood Transfusion N Dermatologic Disorders N Lung Disease N Defects or Inherited Disease N Breast Problem Y Gestational Diabetes N Hematologic disorders N Anesthesia Complications N History of STI N Deep Vein Thrombosis N Polycystic ovary syndrome N Anxiety Disorder N Autoimmune disease N Arthritis N Infertility N Polyps N Acid Reflux (GERD) N History of abnormal pap N Cancer N Stroke N Varicosities N Neurologic/Epilepsy Y Endometriosis N High Cholesterol N Headaches N Fibromyalgia N Kidney Disease N Heart Problems N Kidney or Bladder Problems N Thyroid Problems N GI Problems N Eating Disorder N Anemia N Art (IVF or FET) N Psychiatric Illness N Ovarian Cancer N Diabetes N Pulmonary (TB, Asthma) N Hepatitis/Liver Disease N No Past Medical History N Eczema N Urinary Tract Infection N Abuse/Domestic Violence N Asthma N Trauma/Violence N Depression/ depression N Heart Disease N Pre-Eclampsia N Hypertension N Osteoporosis N Thrombophilias N Gynecological History Statement/Question Response Date of Last Mammogram 07/23/2018 Date of LMP 09/03/2023 STIs/STDs N Date of DEXA bone scan Date of Last Pap Smear 12/06/2019 Sexual Problems? N Current Control Method Tubal Ligat ion LMP Approximate Obstetrics History GPAL:G 3 P 3 0 0 3 Type Value Full Term 3 Living 3 Total 3 Past Encounters Encounter ID Performer Location Encounter Start Date Encounter Closed Date Diagnosis/Indication Diagnosis SNOMED-CT Code Diagnosis ICD10 Code Diagnosis Note [id number] Lanie Campos IrmaJUDY [place] [address],[facility] [place] [address] 12/06/2019 10:00:45 12/06/2019 11:56:12 Pruritic rash 07409156 L28.2 [id number] Tanner Gonzalez MD [facility] [address],[place] [address] 04/29/2020 15:07:43 04/29/2020 17:55:16 Fibrocystic disease of breast [id number] N60.19 patient is 30 year old female with fibrocysti c breast disease. She was recently evaluated. She had images that showed fibrocysti c change and a small cyst. Patient is still concerned. She has seen some growth on the right side. She was given reassuranc e about the recent evaluation . She is given reassuranc e about the changing size due to her menstrual cycle. She agreed with that. She is given recommenda tions and a handout [id number] [facility] [address],[place] [address] 09/07/2023 09:11:39 09/07/2023 09:59:17 Pruritic disorder [id number] L29.9 Today we agreed to update lab work and decide if referral is required.Janessa ramey discussed uncertain if this is allergy based or persistent wax/wane itching is from Tourette's /other issue. She has not had routine labs in 3yrs. Adult heal th examination [id number] Z00.00 Refer to PCP Mass of right breast [id number] N63.10 N64.4 N60.19 Z80.3 Hx of fibrocysti c breast bilaterall y--still remains true on examRight breast contains mass that is tender, mobile at 4-5 o'clock position.Janessa ramey agreed to update imaging bilaterall y due to family history and also Hx of breast issues.Fady l reach out with results/de cide if further action is needed/or referral. Time spent in visit is a total of 21 mins with at least 50% of visit consisting of counseling and review of plan of care. [id number] BRIGITTE Lyn [facility] [address],[place] [address] 09/20/2023 13:57:16 09/20/2023 14:55:35 Gynecologic examination [id number] Z01.419 WWEpap updateddec lined STI screenmamm ogram is schedulede ncouraged annual exam with [facility] in 1 yr or sooner if needed It is strongly advised to have an annual flu shot and up can obtain at most pharmacies . If you have not had a TDap shot in the last 10 years you should obtain one as well. Discussed with patient & provided with informatio n regarding HPV vaccine if applicable . Encourage safe sexual practices, to use condoms and limit partners if not already in a monogamous relationsh ip. Do monthly self breast exams. BRCA testing is now available for patients with strong genetic history of female cancer. If interested contact the office. Engage in regular exercise. Avoid tobacco and illicit drugs. This lifestyle behavior pattern will lead to less health conditions and longer life span. If BMI greater than 25 dietary consult advised. Patient received above instructio ns, and questions have been answered. If you have any questions please call or respond to this email. Patient was made aware of the patient portal and may obtain a paper copy of today's plan if desired. Health Concerns Section Related Observation LastModified by Organization Detai ls LastModified Time None Recorded Concern Status LastModified by Organization Details LastModified Time None Recorded Advance Directives Directive None Recorded Payers Encounter Date Sequence Insurance Name Policy Number Policy Pineda Covered Member ID Pineda Member ID Guarantor Name 12/06/2019 1 [facility] PRIOR TO 09/24/2020 (MEDICAID REPLACEMENT - HMO) Marcella Clark [id number] 04/29/2020 1 [facility] PRIOR TO 2020 (MEDICAID REPLACEMENT - HMO) Marcella Clark [id number] 09/07/2023 1 [facility] - DOS ON OR AFTER 20 (MEDICAID REPLACEMENT - HMO) Marcella Clark [id number] 09/20/2023 1 [facility] - DOS ON OR AFTER 20 (MEDICAID REPLACEMENT - HMO) Marcella Clark [id number] Notes Date Note Type Note Provider Name and Address Organization Details Recorded Time 12/06/2019 text/html Annual GYNReport ed bypatient.Notes:hx of skin pruritus, doesn't want oral tx worried about drug dependence, cycles regular, seeing [facility] breast specialist for right mass, f/u is on monday Lanie Solis CNM [address], [place], [address], [facility] 12/06/2019 10:43:22 04/29/2020 text/html Breast MassReported bypatient.Location :right; lower outer quadrant Onset/Timing:>4 months Quality:size 3 cm; tender Severity:moderate Duration:intermitt ent Context:performs breast self examination; fibrocystic breasts Associated Symptoms:no fever; no skin redness; no nipple discharge; no breast swelling; no arm pain; no arm swelling; no chest pain Tanner Gonzalez MD [address], [place], [address], [facility] 04/29/2020 16:40:13 09/07/2023 text/html Breast MassReported bypatient.Location :right; lower inner quadrant Onset/Timin-4 weeks Quality:painful; firm; tender; mobile; Does change with menstrual cycle but always There. Severity:mild Duration:persisten t Context:performs breast self examination; 1 prior biopsies; fibrocystic breasts Modifying Factors:touch; pressure Associated Symptoms:no fever; no skin redness; no nipple discharge; no breast swelling; no arm pain; no arm swelling; no chest pain BRIGITTE Shields-TEJAL [address], [place], [address], [facility] 09/07/2023 09:59:00 09/20/2023 text/html Annual GYNReport ed bypatient.Menstrua l cycle:Normal menses Urinary symptoms:No hematuria; No incontinence Vulva:No genital lesion Vagina:Normal vaginal discharge Breast:No breast pain; No breast lump; No nipple discharge Current Contraception:Sati sfied with current contraception; Tubal ligation Sexual complaints:No sexual complaints; No pain during intercourse; Normal libido Menopausal Symptoms:No menopausal symptoms; Normal vaginal lubrication Psychological symptoms:No depression; No anxiety; No PMDD Preventive measures:Encourage self breast examination; Encourage regular exercise; Encourage no tobacco use; Encourage regular mammograms starting age 40Notes:37yo WWEh/o BS, ROlast pap 2020 : nilm, HPV (-)has bilateral diagnostic mammogram with right breast u/s scheduled for October 09 : see SUMAYA on 09/07/2023 BRIGITTE Lyn [address], [place], [address], [facility] 09/20/2023 14:53:46 OBGyn Episode Ob Episode Information Episode Created Date Number of Fetuses Patient Bloodtype Patient rh Status Prepregnancy Weight lbs Domestic Partner Domestic Partner Phone Father Name Ui Designer Status 12/09/19 20 1 CLOSED Fetus Data First Name Last Name Admitted to NICU Weight (g) Sex Living Outcome Pediatric Complications Fetus ID Race Codes Race Delivery Type 1.55 2 F Full Term [id number] Vaginal Delivery Leonard Calculation Initial Leonard Date Initial Exam Date Initial Exam Provider Initial Ultrasound Date Last Menstrual Period Date Ultra Sound Weeks Gestation 0 Eighteen To Twenty Week Leonard Update Ultra Sound Date Fundal Height At Umbil Quickening Date Ultra Sound Latest Weeks Gestation Final Leonard Confirmed By Final Leonard Confirmed Date Final Leonard Date Ultra Sound Latest Days Gestation 0 0 Menstrual History Last Menstrual Date Menses Monthly On Bcp Conception Prior Menses Frequency Hcg Plus Date Menarche Onset Age Delivery Information Delivery Date Delivery Type Labor Anesthesia Weeks Gestation Incision Type Labor Labor Length Hrs Delivered By Post Complications Tubal Sterilization Discharge Date Comments 0 40 Discharge Information Feeding Method Contraceptive Method Maternal HG B and HCT Levels Ob Episode Information Episode Created Date Number of Fetuses Patient Bloodtype Patient rh Status Prepregnancy Weight lbs Domestic Partner Domestic Partner Phone Father Name Ui Designer Status 12/09/19 20 1 CLOSED Fetus Data First Name Last Name Admitted to NICU Weight (g) Sex Living Outcome Pediatric Complications Fetus ID Race Codes Race Delivery Type 1.55 2 F Full Term [id number] Vaginal Delivery Leonard Calculation Initial Leonard Date Initial Exam Date Initial Exam Provider Initial Ultrasound Date Last Menstrual Period Date Ultra Sound Weeks Gestation 0 Eighteen To Twenty Week Leonard Update Ultra Sound Date Fundal Height At Umbil Quickening Date Ultra Sound Latest Weeks Gestation Final Leonard Confirmed By Final Leonard Confirmed Date Final Leonard Date Ultra Sound Latest Days Gestation 0 0 Menstrual History Last Menstrual Date Menses Monthly On Bcp Conception Prior Menses Frequency Hcg Plus Date Menarche Onset Age Delivery Information Delivery Date Delivery Type Labor Anesthesia Weeks Gestation Incision Type Labor Labor Length Hrs Delivered By Post Complications Tubal Sterilization Discharge Date Comments 6 37 Discharge Information Feeding Method Contraceptive Method Maternal HG B and HCT Levels Ob Episode Information Episode Created Date Number of Fetuses Patient Bloodtype Patient rh Status Prepregnancy Weight lbs Domestic Partner Domestic Partner Phone Father Name Ui Designer Status 12/09/19 20 1 CLOSED Fetus Data First Name Last Name Admitted to NICU Weight (g) Sex Living Outcome Pediatric Complications Fetus ID Race Codes Race Delivery Type 2721.55 2 M Full Term [id number] Vaginal Delivery Leonard Calculation Initial Leonard Date Initial Exam Date Initial Exam Provider Initial Ultrasound Date Last Menstrual Period Date Ultra Sound Weeks Gestation 0 Eighteen To Twenty Week Leonard Update Ultra Sound Date Fundal Height At Umbil Quickening Date Ultra Sound Latest Weeks Gestation Final Leonard Confirmed By Final Leonard Confirmed Date Final Leonard Date Ultra Sound Latest Days Gestation 0 0 Menstrual History Last Menstrual Date Menses Monthly On Bcp Conception Prior Menses Frequency Hcg Plus Date Menarche Onset Age Delivery Information Delivery Date Delivery Type Labor Anesthesia Weeks Gestation Incision Type Labor Labor Length Hrs Delivered By Post Complications Tubal Sterilization Discharge Date Comments 4 40 Discharge Information Feeding Method Contraceptive Method Maternal HG B and HCT Levels
[2024-08-02 17:04] VITALS: BP 129/69; PULSE 101; RESP 18; TEMP 36.9; O2SAT 98
--- NOTE | 2024-08-02 17:08 | ED_ITS ---
HPI - Extremity Problem General Chief complaint: Extremity Problem,Nontraumatic Stated complaint: R leg swelling Time Seen by Provider: 08/02/24 17:07 Source: patient and family Mode of arrival: ambulatory Limitations: no limitations History of Present Illness HPI Narrative: Patient drove herself to the emergency room complaining of intermittent pain at the right knee for over 2 years. Had a diagnosis of knee sprain/strain over 2 years ago and been having pain off and on since. Patient report that the right knee alessandra every now and then. She denies any recent trauma or injuries. Worse laying down or sitting down, better standing and walking Patient denies any recent trauma or injuries. Related Data Home Medications ?Medication ?Instructions ?Recorded ?Confirmed ?Last Taken ?Type Vitamin 08/29/19 Unknown History Allergies Allergy/AdvReac Type Severity Reaction Status Date / Time pertussis vaccine,fluid Allergy Severe Siezure Verified 07/31/22 14:51 Penicillins Allergy Unknown Hives Verified 07/31/22 14:51 Pertussis Vaccines Allergy Unknown Fatigued Verified 07/31/22 14:51 Review of Systems Review of Systems: All systems reviewed & are unremarkable except as noted in HPI and below PMFSH Past Medical History Medical History Tourettes syndrome Toe fracture, left BABY TOE Anxiety Depression Surgical History Surgical History H/O unilateral oophorectomy Right Family History Family History Other Family history of allergic disorder Family history of blood dyscrasia Family history of kidney disease Social History Social History Smoking packs per day: 0.5 Smoking cigarettes per day: 10.0 Years smoked: 10 Smoking pack-years: 5.00 Smoking status: Current some day smoker Tobacco type: cigarettes Second hand tobacco smoke exposure: Yes Alcohol intake: current Substance use: current Substance use type: marijuana Living arrangements: with family Occupation/Education: unemployed Gender identity (if verbalized by the patient): Female Exam Narrative: General appearance: Well-developed, well-nourished Skin: Normal color Head: Normocephalic, nontraumatic Eyes: Clear conjunctiva ENT: Oropharynx normal, ears normal, nose normal Neck: Supple, nontender Chest and respiratory: Airway patent, no respiratory distress, no accessory muscle use Heart: Regular rate/rhythm Abdomen: Soft, nontender, no organomegaly, quiet bowel sounds Vascular: Normal peripheral pulses, normal capillary refill. Musculoskeletal: Normal range of motion, nontender back Neurologic: Alert and oriented ?3, MOTORCYCLE FABRICATOR is normal as tested, no gross motor deficit Course Vital Signs Vital signs: Vital Signs Temperature 36.9 C 08/02/24 17:04 Pulse Rate 101 H 08/02/24 17:04 Respiratory Rate 18 08/02/24 17:04 Blood Pressure 129/69 08/02/24 17:04 Pulse Oximetry 98 08/02/24 17:04 Temperature 36.9 C 08/02/24 17:04 Pulse Rate 101 H 08/02/24 17:04 Respiratory Rate 18 08/02/24 17:04 Blood Pressure 129/69 08/02/24 17:04 Pulse Oximetry 98 08/02/24 17:04 MDM - Extremity (Nontraumatic) MDM Narrative Medical decision making narrative: Differential diagnosis include sprain/strain, meniscus injuries, ACl or PCL TEARS, TENDONITIS, PATELLOFEMORAL SYNDROME, OR BURSITIS X-RAY OF THE RIGHT KNEE SHOWED NO ACUTE ABNORMALITIES Differential Diagnosis Differential diagnosis: Likely other ( ABOVE) Critical Care Time Critical Care Time Critical Care Time: No Discharge Plan Discharge Clinical Impression: Knee pain, right Patient Disposition: Home Condition: Stable Instructions: Knee Pain (ED) Additional Instructions: RETURN IF SYMPTOMS ARE WORSENING , CALL DR ROJAS FOR APPOINTMENT, TAKE TYLENOL NEEDED FOR ACHES AND PAIN, CONTINUE HOME MEDICATIONS. Patient Language: Gibraltarian Prescriptions: New diclofenac sodium 75 mg tablet,delayed release (DR/EC) 75 mg PO BID PRN (Reason: pain) Qty: 14 0RF No Action methylprednisolone [Medrol (Shyam)] 4 mg tablets,dose pack See Rx Instructions .ROUTE .COMPLEX Qty: 21 0RF Rx Instructions: orally per package directions betamethasone dipropionate 0.05 % cream 1 applic topical BID PRN (Reason: rash) Qty: 45 0RF Vitamin Follow-up/Referrals: Becki,MD Bill [Non-Staff] -
--- OUTSIDE RECORDS SUMMARY | 2024-08-02 17:28 | XMS_ITS | Clinical Summary ---
Author Organization [facility] Address [address] [place] [address] Care Team Providers Care Food Products Tester Name Role Phone No, Physician Primary Care Provider [phone] Allergies Active Allergy Reactions Criticality Noted Date [...] 09/12/2023 Overview (09/12/2023): Daughter with POT1 [id number], [id number] Family history of colon cancer 09/12/2023 Breast mass 07/29/2020 Abnormal findings on diagnostic imaging of breas t 07/29/2020 Surgical History Surgery Date Site/Laterality Comments RHEUMATOID ARTHRITIS Medical History Medical History Date Comments Arthritis Depression Family History Medical History Relation Name Comments GI problems Child 1 POT1 Child 1 POT1 [id number] 2del, p.[id number] Thrombocytopenia Child 1 facial tics Child 2 [...] on file 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 Gender Identity Not on file Sexual Orientation Not on file Obstetrics History Last Filed Vital Signs Vital Sign Reading Time Taken Comments Blood Pressure 142/84 02/01/2024 9:56 AM DEBURRING MACHINE OPERATOR Pulse 77 02/01/2024 9:56 AM DEBURRING MACHINE OPERATOR Temperature 36.5 C (97.7 F) 02/01/2024 9:56 AM DEBURRING MACHINE OPERATOR Respiratory Rate 18 02/01/2024 9:56 AM DEBURRING MACHINE OPERATOR Oxygen Saturation 100% 02/01/2024 9:56 AM DEBURRING MACHINE OPERATOR Inhaled Oxygen Concentration - - Weight 67.2 kg (148 lb 3.2 oz) 02/01/2024 9:56 A M DEBURRING MACHINE OPERATOR Height 177 cm (5' 9.69 ) 02/01/2024 9:56 AM DEBURRING MACHINE OPERATOR Body Mass Index 21.46 02/01/2024 9:56 AM DEBURRING MACHINE OPERATOR Plan of Treatment Health Maintenance Due Date [...] patient's age to complete this topic Insurance [facility] Care Teams Food Products Tester Relationship Specialty Start Date End Date No, Physician PCP - General 04/21/20
--- OUTSIDE RECORDS SUMMARY | 2024-08-02 17:28 | XMS_ITS | Clinical Summary ---
Author Organization [facility] Address [address] [place] [address] Care Team Providers Care Record Center Coordinator Name Role Phone Unavailable Primary Care Provider Unavailabl e Source Comments [facility],non-owned Affiliates and Associated Physician Practices is amultiple site organization consisting of ambulatory clinics and hospital sitesin [place], [place], [place] and [place]. This disclosure is being madepursuant to the Care Everywhere program and may not contain all information available regarding this patient. Last updated [email or web address] Allergies No known active allergies Medications * [...] CDT Respiratory Rate 16 02/04/2019 12:37 PM PIANO TUNER Oxygen Saturation 100% 12/09/2019 10:13 AM CDT [...] patient's age to complete this topic Insurance [facility]
--- OUTSIDE RECORDS SUMMARY | 2024-08-02 17:28 | XMS_ITS | Encounter Summary ---
Author Organization [facility] Healthcare Address [address] [place] [address] Care Team Providers Care Business School Dean Name Role Phone Unavailable Primary Care Provider Unavailabl e Reason for Visit * Diagnostic Imaging (Routine) - Pending Review Specialty Diagnoses / Procedures Referred By Contac t Referred To Contact Procedures Breast Imaging US Outside Reference Transcribed Order, Provider Referral ID Status Reason Start Date Expiration Date V isits Requested Visits Authorized [id number] Pending Review 01/11/2024 02/09/2025 1 1 Encounter Details Date Type Department Care Team (Late st Contact Info) Description 10/23/2017 Hospital Encounter [facility] [address] [place] [id number] Social History Tobacco Use Types Packs/Day Years [...] on file 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 There will be no report generated by a [facility] Radiologist. Narrative [facility] - 01/11/2024 3:24 PM CDT EXAMINATION: Images For Reference Purposes Only us Provider Transcribed Order IMG MAMMO PROCEDURES Final Result [facility] documented in this encounter Visit Diagnoses Not on filedocumented in this encounter
--- OUTSIDE RECORDS SUMMARY | 2024-08-02 17:28 | XMS_ITS | Encounter Summary ---
Author Organization [facility] Healthcare Address [address] [place] [address] Care Team Providers Care Price Accuracy Supervisor Name Role Phone Mildred Dimas MD Primary Care Provider [phone] Reason for Visit * Diagnostic Imaging (Routine) - Pending Review Specialty Diagnoses / Procedures Referred By Contac t Referred To Contact Procedures Breast Imaging US Outside Reference Transcribed Order, Provider Referral ID Status Reason Start Date Expiration Date V isits Requested Visits Authorized [id number] Pending Review 01/11/2024 02/09/2025 1 1 Encounter Details Date Type Department Care Team (Late st Contact Info) Description 07/13/2018 Hospital Encounter [facility] [address] [place] [address] Social History Tobacco Use Types [...] on file 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 There will be no report generated by a [facility] Radiologist. Narrative [facility] - 01/11/2024 3:24 PM CDT EXAMINATION: Images For Reference Purposes Only us Provider Transcribed Order IMG MAMMO PROCEDURES Final Result [facility] documented in this encounter Visit Diagnoses Not on filedocumented in this encounter Care Teams Price Accuracy Supervisor Relationship Specialty Start Date End Date Mildred Dimas MD [address] [place] [address] PCP - General Family Medicine 10/25/17 04/20/20 documented as of this encounter
--- OUTSIDE RECORDS SUMMARY | 2024-08-02 17:28 | XMS_ITS | Clinical Summary ---
Author Organization [facility] Address Counts include [address] [facility] [place] [address] Care Team Providers Care Process Manager Name Role Phone Mildred Martinez MD Primary Care Provider Unavail able Allergies No known active allergies Medications ibuprofen 600 MG tablet Take 1 tablet (600 mg total) by mouth every 6 (six) hours as needed for Pain. 20 tablet 7 Active clotrimazole (LOTRIMIN) 1 % cream Apply topically 2 (two) times daily. 60 g 3 Active Social History Tobacco Use Types Packs/Day Years Used Date Smoking Tobacco: Never Assessed Comments No Sex and Gender Information Value Date Recorded Sex Assigned at Not on file Legal Sex Female 5:11 PM CDT Gender Identity Not on file Sexual Orientation Not on file Last Filed Vital Signs Vital Sign Reading Time Taken Comments Blood Pressure 116/66 09/01/2022 3:21 PM CDT Pulse 88 09/01/2022 3:21 PM CDT Temperature 37.1 C (98.7 F) 09/01/2022 3:21 PM CDT Respiratory Rate 20 09/01/2022 3:21 PM CDT Oxygen Saturation 99% 09/01/2022 3:21 PM CDT Inhaled Oxygen Concentration - - Weight 62.1 kg (137 lb) 09/01/2022 3:21 PM CDT Height 177.8 cm (5' 10 ) 09/01/2022 3:21 PM CDT Body Mass Index 19.66 09/01/2022 3:21 PM CDT Plan of Treatment Health Maintenance Due Date Last Done Comments Cervical Cancer Screening Pap Smear (Age 30 to 64) Every 3 Years 1985 Annual Physical 1988 Hepatitis C 10/08/2003 Cervical Cancer Screening Pap with HPV Testing (Age 30 to 64) Every 5 Years 10/08/2015 Cervical Cancer Screening with HPV 10/08/2015 DTaP, Tdap and Td Vaccines (7 - Td or Tdap) 07/30/2023 07/29/2013, 12/19/2000, 10/11/1990, Additional history exists COVID-19 Vaccine ( season) 2023 Hepatitis B Vaccines Completed 12/09/1996, 09/02/1996, 05/24/1996 HPV Vaccines Aged Out No longer eligi ble based on patient's age to complete this topic Meningococcal B Vaccine Aged Out No l onger eligible based on patient's age to complete this topic Meningococcal Vaccine Aged Out No layla leticia eligible based on patient's age to complete this topic Pneumococcal Vaccine: Pediatrics (0 to 5 Years) and At-Risk Patients (6 to 49 Years) Aged Out No longer eligible based on patient's age to complete this topic RSV Immunizations Under 20 Months Aged Out No longer eligible based on patient's age to complete this topic Insurance Care Teams Process Manager Relationship Specialty Start Date End Date Mildred Martinez MD PCP - General 02/20/15
--- OUTSIDE RECORDS SUMMARY | 2024-08-02 17:28 | XMS_ITS | Referral Summary ---
Author Organization [facility] Address [address] [place] [address] Care Team Providers Care Otr Flatbed Driver Name Role Phone No, Physician Primary Care Provider [phone] Allergies Active Allergy Reactions Criticality Noted Date [...] 09/12/2023 Overview (09/12/2023): Daughter with POT1 [id number], [id number] Family history of colon cancer 09/12/2023 Breast [...] on file Legal Sex Female 8:16 PM FLORIST MANAGER Gender Identity Not on file Sexual Orientation Not on file Last Filed Vital Signs Vital Sign Reading Time Taken Comments Blood Pressure 142/84 02/01/2024 9:56 AM FLORIST MANAGER Pulse 77 02/01/2024 9:56 AM FLORIST MANAGER Temperature 36.5 C (97.7 F) 02/01/2024 9:56 AM FLORIST MANAGER Respiratory Rate 18 02/01/2024 9:56 AM FLORIST MANAGER Oxygen Saturation 100% 02/01/2024 9:56 AM FLORIST MANAGER Inhaled Oxygen Concentration - - Weight 67.2 kg (148 lb 3.2 oz) 02/01/2024 9:56 A M FLORIST MANAGER Height 177 cm (5' 9.69 ) 02/01/2024 9:56 AM FLORIST MANAGER Body Mass Index 21.46 02/01/2024 9:56 AM FLORIST MANAGER Plan of Treatment Not on file Insurance [facility] Care Teams Otr Flatbed Driver Relationship Specialty Start Date End Date No, Physician PCP - General 04/21/20
--- OUTSIDE RECORDS SUMMARY | 2024-08-02 17:28 | XMS_ITS | Encounter Summary ---
Author Organization [facility] Address [address] [place] [address] Phone Care Team Providers Care Solar Mechanical Engineer Name Role Phone No, Physician Primary Care Provider [phone] Encounter Details Date Type Department Care Team (Late st Contact Info) Description 06/24/2020 Telephone [facility] Surgery [address] [facility] Advanced Medicine [address]th [place] [address] [place] [address] Emily Moore Social History Tobacco Use Types Packs/Day Years Used Date Smoking Tobacco: Never Assessed Comments Unknown Sex and Gender Information Value Date Recorded Sex Assigned at Not on file Legal Sex Female 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
== END 2024-08-02 18:29 | disposition home or self-care (01) ==
PROVIDERS: Emergency Provider Emergency Medicine
DX: M25.561 Pain in right knee (principal); F95.2 Tourette's disorder; F41.8 Other specified anxiety disorders
CPT/HCPCS: 73562; 99283

== ENCOUNTER 2024-09-04 15:10 | Emergency (ER) | payer OTHER, SELFPAY ==
[2024-09-04 15:17] VITALS: BP 115/87; PULSE 96; RESP 20; TEMP 37.2; O2SAT 100
--- NOTE | 2024-09-04 15:37 | ED.URI ---
HPI - URI/Sore Throat General Chief Complaint: Upper Respiratory Infection Stated Complaint: Sinus Time Seen by Provider: 09/04/24 15:25 Source: patient and RN notes reviewed Mode of arrival: ambulatory Limitations: no limitations History of Present Illness HPI Narrative: Patient presents today with a 10 day history of nasal congestion, rhinorrhea, postnasal drip, sinus pressure with occasional headache. Denies fever, cough, shortness of breath. She has tried Mucinex and Sudafed with mild relief. Patient vapes. Related Data Allergies Allergy/AdvReac Type Severity Reaction Status Date / Time pertussis vaccine,fluid Allergy Severe Siezure Verified 09/04/24 15:13 Penicillins Allergy Unknown Hives Verified 09/04/24 15:13 Review of Systems Review of Systems: CONSTITUTIONAL: Denies body aches, fever, chills, or sweats. EYES: Denies visual changes, redness, or discharge. ENT: Denies sore throat, or otalgia.+ rhinorrhea, congestion, postnasal drip CARDIOVASCULAR: Denies chest pain, palpitations, or edema. RESPIRATORY: Denies cough or dyspnea. GASTROINTESTINAL: Denies abdominal pain, nausea, vomiting, or diarrhea. GENITOURINARY: Denies dysuria or hematuria. SKIN: Denies rash, itching, or wounds. MUSCULOSKELETAL: Denies back pain, joint pain, or myalgia. NEUROLOGIC: Denies numbness, tingling, or weakness.+ headache PSYCH: Denies depression or anxiety. [facility] Past Medical History Medical History Tourettes syndrome Toe fracture, left BABY TOE Anxiety Depression Surgical History Surgical History H/O unilateral oophorectomy Right Family History Family History Other Family history of allergic disorder Family history of blood dyscrasia Family history of kidney disease Social History Social History Smoking packs per day: 0.5 Smoking cigarettes per day: 10.0 Years smoked: 10 Smoking pack-years: 5.00 Smoking status: Current some day smoker Tobacco type: cigarettes Second hand tobacco smoke exposure: Yes Alcohol intake: current Substance use: current Substance use type: marijuana Living arrangements: with family Occupation/Education: unemployed Gender identity (if verbalized by the patient): Female Comments At time of signature, I have reviewed and agree with nursing past medical, surgical, social and family history unless otherwise noted. Please see nursing chart for further information. There is no relevant family history pertinent to the presenting complaint Exam Narrative: GENERAL: Well-appearing, well-nourished, and in no acute distress. HEAD: Normocephalic, atraumatic. EYES: EOMI. No redness or drainage. Conjunctivae normal. ENT: Mucous membranes pink and moist. Nares mildly congested. No rhinorrhea. TMs normal bilaterally. Throat normal. Uvula midline. NECK: Normal AROM. Supple. No lymphadenopathy. CHEST: No respiratory distress. Clear to auscultation. HEART: Regular rate and rhythm. No murmur appreciated. EXTREMITIES: Normal range of motion. No edema. SKIN: Warm, dry, no rash. Capillary refill normal. Normal skin turgor. NEURO: No focal deficits. Alert and oriented x3. Gait steady. PSYCH: Normal affect. No signs of depression or anxiety. Course Course Level of Care: Express Care Visit Vital Signs Vital signs: Vital Signs Temperature 99.0 F 09/04/24 15:17 Pulse Rate 96 09/04/24 15:17 Respiratory Rate 09/04/24 15:17 Blood Pressure 115/87 09/04/24 15:17 Pulse Oximetry 100 09/04/24 15:17 Oxygen Delivery Room Air 09/04/24 15:17 Temperature 99.0 F 09/04/24 15:17 Pulse Rate 96 09/04/24 15:17 Respiratory Rate 09/04/24 15:17 Blood Pressure 115/87 09/04/24 15:17 Pulse Oximetry 100 09/04/24 15:17 Oxygen Delivery Room Air 09/04/24 15:17 Review MDM - URI/Sore Throat MDM Narrative Medical decision making narrative: Patient will be treated with a course of doxycycline for bacterial sinusitis. Recommend continuing [id number] medication as well. Anticipatory guidance given. Differential Diagnosis Differential diagnosis: Likely upper respiratory infection, sinusitis, viral infection and other (Rhinitis) Critical Care Time Critical Care Time Critical Care Time: No Discharge Plan Discharge Clinical Impression: Sinusitis Qualifiers: Sinusitis location: unspecified location Chronicity: acute Recurrence: non-recurrent Qualified Code(s): J01.90 - Acute sinusitis, unspecified Patient Disposition: Home Condition: Stable Instructions: Antibiotic Form, Sinusitis (ED) Additional Instructions: Please take the doxycycline as prescribed. You may continue [id number] medications such as Sudafed, Flonase. Follow-up with your PCP in 3 days if symptoms are not improving. Your blood pressure was elevated above 120/80 today at Urgent Care. This puts you above the threshold for follow up. Please schedule a followup visit with your personal physician as soon as possible, for further evaluation and treatment. Even blood pressure exceeding 120/80 may indicate pre-hypertension. Patient Language: Icelandic Prescriptions: New doxycycline hyclate 100 mg tablet 100 mg PO BID 7 Days Qty: 14 0RF Follow-up/Referrals: PHYSICIAN,MACHINE REBUILDER [Primary Care Provider] - Time of Disposition: 15:40
== END 2024-09-04 15:45 | disposition home or self-care (01) ==
PROVIDERS: Emergency Provider Nurse Practitioner
DX: J01.90 Acute sinusitis, unspecified (principal); F17.290 Nicotine dependence, other tobacco product, uncomplicated; F17.210 Nicotine dependence, cigarettes, uncomplicated; F12.90 Cannabis use, unspecified, uncomplicated
CPT/HCPCS: 99213; G0463